=== PATIENT | male | born 1975 | race Caucasian/White ===

== ENCOUNTER 2022-12-01 22:01 | Observation (INO) | payer BC, SELFPAY ==
[2022-12-01] VITALS (9 sets, daily range): BP systolic 133–144; BP diastolic 97–102; PULSE 123–145; RESP 18–21; TEMP 36.6; O2SAT 92–98
--- NOTE | ~2022-12-01 | CT_ITS ---
EXAMINATION: CTA chest PE abdomen pel DATE: 12/02/2022 00:11 INDICATION: Midsternal chest pain. Upper abdominal pain. TECHNIQUE: Computed tomography angiography (CTA) of the chest was performed with 100 mL Omnipaque-350 intravenous contrast timed to evaluate the pulmonary arteries. Coronal maximum intensity projection 3D-reconstructions were created by the technologist. Computed tomography (CT) of the abdomen and pelv is was performed with intravenous contrast. Automated exposure control and iterative reconstruction t echnique were employed. The dose-length product was 2406.41 mGy-cm. COMPARISON: None. FINDINGS: CTA chest: The lungs demonstrate mild atelectasis. No pleural effusion. The heart size is normal. No pericardial effusion. There is no pulmonary embolus. There is mild thoracic spondylosis. CT abdomen and pelvis: There is diffuse hepatic steatosis. There are changes of cholecystectomy. The spleen, pancreas, adrenal glands, and kidneys are normal. There are no dilated loops of bowel. The ap pendix is not visualized. There is diverticulosis of the colon without evidence of diverticulitis. Th ere is a left inguinal hernia containing fat. There are no pathologically enlarged lymph nodes. There is no free intraperitoneal fluid. There is moderate osteoarthritis of the hips. There is moderate lo wer lumbar spondylosis. IMPRESSION: 1. No pulmonary embolus. 2. Left inguinal hernia containing fat. 3. Diffuse hepatic steatosis. Reviewed, dictated and finalized at location A. DRY OPERATOR FINISHING
--- NOTE | ~2022-12-01 | XR_ITS ---
EXAMINATION: XR chest 2V DATE: 12/01/2022 22:30 INDICATION: Chest pain. TECHNIQUE: Frontal and lateral views of the chest were obtained. COMPARISON: None. FINDINGS: The chest demonstrates clear lungs without pneumonia, pleural effusion, or pneumothorax. Th e heart size is normal. Surgical clips in the right upper quadrant are likely from cholecystectomy. IMPRESSION: 1. No acute cardiopulmonary disease. Reviewed, dictated and finalized at location A. RN
--- NOTE | 2022-12-01 22:03 | ECG_ITS ---
Measurements Intervals [place] Rate: 134 P: 52 [place]: 144 QRS: 59 QRSD: 81 T: 53 QT: 309 QTc: 463 Interpretive Statements SINUS TACHYCARDIA ABNORMAL ECG NO PREVIOUS ECG AVAILABLE FOR COMPARISON Electronically Signed On 12-02-2022 7:46:59 CLIN APPLICATION SPECIALIST by Erickson Pérez D.O.
[2022-12-01 22:22] LABS: Basophils Percent Auto 0.2 % (0.2-1.2); Eosinophils Percent Auto 0.1 % (0-4.4); Hemoglobin 17.2 g/dL (14.0-18.0); Immature Granulocyte Absolute 0.05 K/mm3 (0.00-0.031); Immature Granulocyte Percent A 0.3 % (0-0.5); Lymphocytes Absolute Auto 1.37 K/mm3 (0.9-3.2); Lymphocytes Percent Auto 9.2 % (18.3-44.2); Mean Corpuscular HGB Conc 35.1 g/dl (32-36); Mean Corpuscular Hemoglobin 31.1 pg (26-34); Mean Corpuscular Volume 88.6 fl (80-100); Mean Platelet Volume 9.2 fl (7.4-10.4); Monocytes Absolute Auto 1.2 K/mm3 (0.1-0.6); Monocytes Percent Auto 8.4 % (2.6-8.5); Neutrophils Absolute Auto 12.1 K/mm3 (1.3-6.7); Neutrophils Percent Auto 81.8 % (45.5-73.1); Platelet Count Result 190 k/mm3 (150-375); Red Blood Count 5.53 M/mm3 (4.6-6.20); Red Cell Distribution Width 12.3 % (11.5-14.5); White Blood Count 14.8 K/mm3 (4.5-10.0)
[2022-12-01 22:35] LABS: INR 1.1; Prothrombin Time 13.7 Seconds (11.1-14.7)
[2022-12-01 22:36] LABS: Partial Thromboplastin Time 29.1 SECONDS (22.3-36.8)
[2022-12-01 22:46] LABS: Alanine Aminotransferase 64 U/L (6-50); Albumin Level 4.9 g/dL (3.5-5.1); Alkaline Phosphatase 118 U/L (38-126); Anion Gap 15 mmol/L (8-16); Aspartate Amino Transferase 47 U/L (17-59); Bilirubin,Total 1.5 mg/dL (0.2-1.3); Blood Urea Nitrogen 14 mg/dL (9-20); Calcium 8.7 mg/dL (8.4-10.2); Carbon Dioxide 17 mmol/L (22-30); Chloride 101 mmol/L (98-107); Estimated CRCL calculation 127 ml/min; Estimated Glomerular Filt Rate > 60; Glucose 127 mg/dL (65-110); Lipase 32 U/L (23-300); Potassium 3.8 mmol/L (3.4-5.0); Sodium 133 mmol/L (137-145)
--- NOTE | 2022-12-01 22:47 | ED.GENADULT ---
HPI - General Adult General Chief complaint: Chest Pain Stated complaint: chest pain Time Seen by Provider: 12/01/22 22:45 Source: RN notes reviewed History of Present Illness HPI narrative: Patient presents emergency department from home for chest pain. Patient states symptoms began yesterday. The pain is located over the midsternal chest does not radiate. States his described as a burning and pressure sensation states has been associated with a large amount of belching. Patient states he does feel like heartburn he does note associated shortness of breath with the symptoms he also notes upper abdominal pain he denies any nausea vomiting or diarrhea denies any for chills Related Data Allergies Allergy/AdvReac Type Severity Reaction Status Date / Time No Known Allergies Allergy Verified 12/01/22 22:11 Review of Systems Review of Systems: Gen.: Denies fevers or chills ENT: Denies congestion Respiratory: Reports shortness of breath CV: See HPI GI: Reports upper abdominal pain, denies nausea, emesis or diarrhea Musculoskeletal: Denies back pain or muscle pain Neuro: Denies numbness, tingling, weakness or focal weakness Skin: Denies rash Except as documented, all other systems reviewed and negative [facility] Past Medical History Medical History (Updated 12/02/22 @ 04:11 by Pablo Hebert DO) Patient denies significant medical history Social History Social History (Updated 12/01/22 @ 22:52 by Pablo Hebert DO) Smoking status: Never smoker Exam Narrative: APPEARANCE: No acute distress, nontoxic, resting in bed HEENT: Normocephalic, atraumatic, OMM RESPIRATORY: No respiratory distress, clear to auscultation bilaterally with no rhonchi wheezing or rales CARDIOVASCULAR: Tachycardic and regular s murmur ABDOMINAL: Soft nondistended tender palpation epigastric and left upper quadrant no tenderness in right upper quadrant, right lower quadrant and left lower quadrant no rebound or guarding MUSCULOSKELETAl: Moves all extremities. No clubbing, cyanosis or edema. NEURO: Awake and alert. Following commands, speech normal, no focal deficits SKIN:: Warm, dry. Normal Color PSYCHIATRIC: Normal affect/mood Course Course Emergency Course: Patient states pain is resolved at this time following aspirin IV fluids Protonix and GI cocktail Discussed with Dr. jamil agrees with admission at this time Discussed with patient and family results of workup and diagnosis. Discussed need for admission. Patient and family understand and agree to current treatment plan Vital Signs Vital signs: Vital Signs Temperature 97.8 F 12/01/22 22:07 Pulse Rate 145 H 12/01/22 22:07 Respiratory Rate 18 12/01/22 22:07 Blood Pressure 133/99 H 12/01/22 22:07 Pulse Oximetry 98 12/01/22 22:07 Oxygen Delivery Room Air 12/01/22 22:07 Temperature 97.8 F 12/01/22 22:07 Pulse Rate 110 H 12/02/22 01:48 Respiratory Rate 23 H 12/02/22 01:34 Blood Pressure 114/70 12/02/22 01:31 Pulse Oximetry 95 12/02/22 01:34 Oxygen Delivery Room Air 12/02/22 01:48 Medical Decision Making [facility] Narrative Medical decision making narrative: Patient presents for chest pain ongoing since yesterday midsternal initially had tenderness in the epigastric region CT of the chest abdomen pelvis shows no acute process the patient 2 troponins in the ED that are negative but uptrending will admit for further evaluation at this time patient did have sinus tachycardia upon arrival given 2 L of fluid in the ED with improvement Differential Diagnosis Differential Diagnosis: Differential diagnosis includes myocardial infarction, pneumothorax, pulmonary embolism, cholecystitis, gastritis, Vital Signs Vital Signs: Vital Signs Temperature 97.8 F 12/01/22 22:07 Pulse Rate 145 H 12/01/22 22:07 Respiratory Rate 18 12/01/22 22:07 Blood Pressure 133/99 H 12/01/22 22:07 Pulse Oximetry 98 12/01/22 22:07 Oxygen Delivery Room Air
--- NOTE | 2022-12-01 22:55 | PC.NURSE ---
Called main lab to add on dimer.
[2022-12-01 23:19] LABS: Troponin I 0.018 ng/mL (0.000-0.034)
[2022-12-01 23:21] LABS: D Dimer 0.73 ug/mL (<0.48)
[2022-12-01] MEDS: PANTOPRAZOLE SODIUM IV 40 MG VIAL IV PUSH (23:35)
[2022-12-01] MEDS: ASPIRIN 81 MG CHEWABLE TABLET 324 MG PO (23:35)
[2022-12-01] MEDS: SODIUM CHLORIDE 0.9% IV 1,000 ML 999 ML IV CONT (23:36)
[2022-12-02] VITALS (14 sets, daily range): BP systolic 112–139; BP diastolic 66–96; PULSE 78–121; RESP 10–23; TEMP 35.7–36.4; O2SAT 95–99; BMI 36.6
[2022-12-02] MEDS: SODIUM CHLORIDE 0.9% IV 1,000 ML 999 ML IV CONT (01:42)
[2022-12-02 01:56] LABS: Troponin I 0.032 ng/mL (0.000-0.034)
--- NOTE | 2022-12-02 01:58 | ECG_ITS ---
Measurements Intervals [place] Rate: 104 P: 43 [place]: 177 QRS: 39 QRSD: 80 T: 23 QT: 348 QTc: 459 Interpretive Statements SINUS TACHYCARDIA BORDERLINE ECG COMPARED TO ECG 12/01/2022 22:07:30 HEART RATE HAS DECREASED Electronically Signed On 12-02-2022 7:47:24 FINANCIAL SYSTEMS DIRECTOR by Erickson Pérez D.O.
[2022-12-02 03:36] LABS: SARS-CoV-2 RNA PCR Negative
--- NOTE | 2022-12-02 04:52 | ADMGEN ---
This patient, Dejan Quintana, was admitted to IMU Room 202-01. Patient/family oriented to hospital policies and general routines including ID bracelet, bed and alarms, visiting hours, pain management, procedures, bathroom and other care routines, personal items, smoking policy, room service/diet, and visiting hours. Information on how to activate the Rapid Response Team has been discussed. Patient/Family are encouraged to report perceived risks to care and to ask questions if they do not understand what they are told or what they should do.
--- NOTE | 2022-12-02 06:29 | PM.IMHP ---
H&P: HPI History of Present Illness Date/Time: 12/02/22 06:29 Chief Complaint: Chest pain Narrative: Patient is a 47-year-old male with a past medical history of hypertension, hyperlipidemia, diabetes who presented to the ED with complaints chest pain. Patient stated that his symptoms started yesterday. he stated that his pain was midsternal that did not radiate anywhere. He stated the pain was constant. He did state that he was trying to belch to ease the pressure however nothing was helping. He stated that it did last roughly a good day. He finally pulled over and tried to take Pepcid AC and Pepto-Bismol without any relief. He stated that he did get relief when he got to the hospital and was given aspirin. It does appear the patient also got a GI cocktail. Currently patient has no pain in his chest. he did state that when his pain was there it was a tight pressure type feeling. He also stated that he would get shortness of breath as the pain grew in intensity. He does related to a possible change in diet as he only eats about 2 hot pockets a day. Patient does have diabetes and stated that he changed his diet to the diabetes. He states that his last A1c was roughly around 9. He denies any nausea, vomiting, diarrhea, constipation, weakness, fatigue, sweats, fevers, chills, headache, lightheadedness, dizziness, cough, wheezes or any abnormal swelling. He also endorses some pain in the left upper quadrant with deep palpation. CTA was performed and does not show any PE. Abdomen pelvis CT shows some hepatic stenosis and diverticulosis without diverticulitis. In the Ed the initial troponin was negative however the following troponin was higher than the first. Patient is being admitted to the hospital service under observation Review of Systems Review of Systems: All systems reviewed & are unremarkable except as noted in HPI and below PMFSH Past Medical History Medical History Diabetes Hyperlipemia Hypertension MARY (obstructive sleep apnea) Surgical History Surgical History Hx of cholecystectomy Status post appendectomy Family History Family History (Updated 12/02/22 @ 07:25 by JUSTIN Naranjo) Father Cerebrovascular accident COVID Mother Ovarian cancer Hypertension Social History Social History (Updated 12/02/22 @ 07:27 by JUSTIN Naranjo) Social History: 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 He has 2 kids and is . He elects his Abdirahman to be his surrogate. He wishes to be a full code Smoking packs per day: 2 Smoking cigarettes per day: 40.0 Years smoked: 20 Smoking pack-years: 40.00 Smoking status: Former smoker Additional smoking assessment comments: Quit in 2007 Alcohol intake: current Drinks per week: 2 Alcohol use details: about every other month Substance use: never Substance use type: does not use Lack of Transportation: No Lack of Food: Never True Current Housing: I Have Housing Concerned About Future Housing: No Difficulty Paying Gas/Electric Bills: No Difficulty Paying for Meds: No Currently Unemployed: No Education: High School Diploma/GED Difficulty w/ Childcare or Family Care: No Living arrangements: with family Occupation/Education: occupation Additional occupation/education comments: truck driver's offsider Gender identity (if verbalized by the patient): Male Sexual Orientation (if Verbalized by the Patient): Straight or Heterosexual Spiritual care concerns: No Agree to blood products: Yes Meds Home Medications and Allergies Home Medications Medication Instructions Recorded Confirmed Type dapagliflozin 10 mg tablet 10 mg PO DAILY 12/02/22 12/02/22 History (Aida) dulaglutide 0.75 mg/0.5 mL 0.75 mg subcut WEEKLY 12/02/22 12/02/22 History subcutaneous pen injector
[2022-12-02 07:57] LABS: Basophils Percent Auto 0.3 % (0.2-1.2); Eosinophils Absolute Auto 0.1 K/mm3 (0-0.3); Eosinophils Percent Auto 0.9 % (0-4.4); Hematocrit 44.6 % (42.0-52.0); Hemoglobin 15.3 g/dL (14.0-18.0); Immature Granulocyte Absolute 0.03 K/mm3 (0.00-0.031); Immature Granulocyte Percent A 0.4 % (0-0.5); Lymphocytes Absolute Auto 1.49 K/mm3 (0.9-3.2); Lymphocytes Percent Auto 19.5 % (18.3-44.2); Mean Corpuscular HGB Conc 34.3 g/dl (32-36); Mean Corpuscular Hemoglobin 30.9 pg (26-34); Mean Corpuscular Volume 90.1 fl (80-100); Mean Platelet Volume 9.6 fl (7.4-10.4); Monocytes Percent Auto 13.5 % (2.6-8.5); Neutrophils Percent Auto 65.4 % (45.5-73.1); Platelet Count Result 165 k/mm3 (150-375); Red Blood Count 4.95 M/mm3 (4.6-6.20); Red Cell Distribution Width 12.6 % (11.5-14.5); White Blood Count 7.6 K/mm3 (4.5-10.0)
[2022-12-02 08:08] LABS: Alanine Aminotransferase 50 U/L (6-50); Albumin Level 4.2 g/dL (3.5-5.1); Alkaline Phosphatase 93 U/L (38-126); Anion Gap 11 mmol/L (8-16); Aspartate Amino Transferase 35 U/L (17-59); Bilirubin,Total 1.3 mg/dL (0.2-1.3); Blood Urea Nitrogen 13 mg/dL (9-20); Calcium 7.9 mg/dL (8.4-10.2); Carbon Dioxide 19 mmol/L (22-30); Chloride 104 mmol/L (98-107); Cholesterol 145 mg/dL (0-200); Estimated CRCL calculation 167 ml/min; Estimated Glomerular Filt Rate > 60; Glucose 87 mg/dL (65-110); HDL Direct 29 mg/dL; Potassium 3.7 mmol/L (3.4-5.0); Sodium 134 mmol/L (137-145); Triglycerides 172 mg/dL (<150)
[2022-12-02 08:20] LABS: LDL Cholesterol Direct 77 mg/dL
[2022-12-02 08:24] LABS: Troponin I 0.072 ng/mL (0.000-0.034)
[2022-12-02] MEDS: ENOXAPARIN 40 MG/0.4 ML SYRINGE SUB-Q (09:21)
[2022-12-02] MEDS: EMPAGLIFLOZIN 25 MG TABLET PO (09:22)
[2022-12-02] MEDS: EZETIMIBE 10 MG TABLET PO (09:22)
[2022-12-02] MEDS: LOVASTATIN 20 MG TABLET 40 MG PO (09:22)
[2022-12-02] MEDS: lisinopriL 10 MG TABLET PO (09:22)
--- NOTE | 2022-12-02 09:55 | PM.CNCAR ---
Assessment and Plan Assessment and plan (1) Chest pain: Code(s): R07.9 - Chest pain, unspecified Status: Acute Plan This is a 47-year-old man with risk factors for coronary disease who comes in with a 2 day history of chest pain is very atypical of ischemia. His objective evaluation includes 2 normal looking EKGs and a series of troponin levels the 3rd of which is just barely out of normal range. I do not believe we should diagnosed him with acute coronary syndrome. Obviously he is at risk for coronary disease given his diabetes hypertension and dyslipidemia. I believe it is safe for him to be discharged for outpatient evaluation I advised him to see nurse practitioner in [place] as soon as possible following discharge for stress testing. I would recommend adding low-dose aspirin to his medical regimen. If you have any other questions regarding this opinion please let me know Lemuel Vasquez MD [facility] History of Present Illness History of Present Illness Consult date/time: 12/02/22 09:55 Consult reason: chest pain Reason For Visit: chest pain, sinus tachycardia Narrative: This is a 47-year-old man who I am seeing at the request of the hospitalist because of chest pain. 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 He describes this as a low substernal to epigastric discomfort that had a burning quality to it. It was not associated with physical exertion it was not associated with any sense of air hunger diaphoresis nausea or vomiting there was no radiation of this pain to any other location. He thought this were represented dyspepsia and try taking some antacids and drinking some clear fluid that did not seem to affect the discomfort at all. For this reason he decided to come to the emergency room yesterday evening for evaluation. In the emergency room the discomfort apparently was relieved with a GI cocktail according to the chart. He has not had any symptoms since he has been in the IMU she states this morning that if he takes a deep breath he will have some very mild discomfort in this area. There have been 2 electrocardiograms performed which are normal. He had 3 sets of troponins done the 1st 2 sets were negative the 3rd set was just out of normal range at 0.07. In this setting I am seeing him in consultation. 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 He lives in the [facility] and sees a nurse practitioner for his primary care. He does have hypertension diabetes and dyslipidemia. He can not think of anyone in his family that has a history of coronary artery disease. He is a nonsmoker. Review of Systems Constitutional: Constitutional: Reports no additional constitutional complaints Eyes: Eyes: Reports no additional eye complaints ENT: Reports system reviewed and no additional complaints, except as documented Cardiovascular: Cardiovascular: Reports as per HPI Respiratory: Respiratory: Reports no additional respiratory complaints Gastrointestinal: Gastrointestinal: Reports as per HPI Musculoskeletal: Musculoskeletal: Reports no additional musculoskeletal complaints Integumentary/Breasts: Skin/Breast: Reports system reviewed and no additional complaints, except as docu Neurologic: Reports system reviewed and no additional complaints, except as documented Endocrine: Endocrine: Reports no additional endocrine complaints Hematologic/Lymphatic: Hematologic/Lymphatic: Reports no additional hematologic/lymphatic complaints Allergic/Immunologic: Allergic/Immunologic: Reports no additional allergic/immunologic co
[2022-12-02 11:36] LABS: Glucose Point of Care 72 mg/dl (65-105)
[2022-12-02 11:38] LABS: Hemoglobin A1C 8.9 % (<5.7)
--- NOTE | 2022-12-02 12:27 | PM.SD2 ---
Same Day Admit/Disch: HPI History of Present Illness Chief complaint: chest pain, sinus tachycardia Narrative: Dejan Quintana is a 47 year old male with a past medical history of hypertension, hyperlipidemia, diabetes who presented to the ED with complaints chest pain.? Patient stated that his symptoms started yesterday. he stated that his pain was midsternal that did not radiate anywhere.? He stated the pain was constant.? He did state that he was trying to belch to ease the pressure however nothing was helping.? He stated that it did last roughly a good day.? He finally pulled over and tried to take Pepcid AC and Pepto-Bismol without any relief.? He stated that he did get relief when he got to the hospital and was given aspirin.? It does appear the patient also got a GI cocktail.? Currently patient has no pain in his chest. he did state that when his pain was there it was a tight pressure type feeling.? He also stated that he would get shortness of breath as the pain grew in intensity.? He does related to a possible change in diet as he only eats about 2 hot pockets a day.? Patient does have diabetes and stated that he changed his diet to the diabetes.? He states that his last A1c was roughly around 9.? He denies any nausea, vomiting, diarrhea, constipation, weakness, fatigue, sweats, fevers, chills, headache, lightheadedness, dizziness, cough, wheezes or any abnormal swelling.? He also endorses some pain in the left upper quadrant with deep palpation.? CTA was performed and does not show any PE.? Abdomen pelvis CT shows some hepatic stenosis and diverticulosis without diverticulitis.? In the Ed the initial troponin was negative however the following troponin was higher than the first.? 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 He has 2 kids and is . He elects his Abdirahman to be his surrogate. He wishes to be a full code Smoking packs per day: 2 Smoking cigarettes per day: 40.0 Years smoked: 20 Smoking pack-years: 40.00 Smoking status: Former smoker Additional smoking assessment comments: Quit in 2007 Alcohol intake: current Drinks per week: 2 Alcohol use details: about every other month Substance use: never Substance use type: does not use Lack of Transportation: No Lack of Food: Never True Current Housing: I Have Housing Concerned About Future Housing: No Difficulty Paying Gas/Electric Bills: No Difficulty Paying for Meds: No Currently Unemployed: No Education: High School Diploma/GED Difficulty w/ Childcare or Family Care: No Living arrangements: with family Occupation/Education: occupation 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 Gender identity (if verbalized by the patient): Male Sexual Orientation (if Verbalized by the Patient): Straight or Heterosexual Spiritual care concerns: No Agree to blood products: Yes Same Day Admit/Disch: Med Pre-admit Medications Home Medications Medication Instructions Recorded Confirmed Type dapagliflozin 10 mg tablet 10 mg PO DAILY 12/02/22 12/02/22 History (Farxiga) dulaglutide 0.75 mg/0.5 mL 0.75 mg subcut WEEKLY 12/02/22 12/02/22 [facility] ezetimibe 10 mg tablet 10 mg PO DAILY 12/02/22 12/02/22 History lisinopril
== END 2022-12-02 13:54 | disposition home or self-care (01) ==
LOC: ANHED 23:06 → ANHIMU 12-02 04:08
PROVIDERS: Nurse Practitioner; Admitting Provider Student in an Organized Health Care Education/Training Program; Emergency Provider Emergency Medicine; Visit Provider Chiropractor
DX: R00.0 Tachycardia, unspecified (principal); E78.5 Hyperlipidemia, unspecified; I10 Essential (primary) hypertension; E11.9 Type 2 diabetes mellitus without complications; G47.33 Obstructive sleep apnea (adult) (pediatric); K40.90 Unilateral inguinal hernia, without obstruction or gangrene, not specified as recurrent; K76.0 Fatty (change of) liver, not elsewhere classified; R01.1 Cardiac murmur, unspecified; F10.90 Alcohol use, unspecified, uncomplicated; Z20.822 Contact with and (suspected) exposure to COVID-19; Z90.49 Acquired absence of other specified parts of digestive tract; Z87.891 Personal history of nicotine dependence; Z82.49 Family history of ischemic heart disease and other diseases of the circulatory system
CPT/HCPCS: 36415; 71046; 71275; 74177; 80053; 80061; 82948; 83036; 83690; 83735; 84484; 85025; 85380; 85610; 85730; 93005; 96361; 96365; 96372; 96375; 99285; A9270; C9113; G0378; J0131; J1650; J7030; Q9967; U0003; U0005